=== PATIENT | female | born 2000 | race African-American/Black ===

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

== ENCOUNTER 2019-12-16 11:42 | Emergency (ER) | payer OTHER ==
[2019-12-16] MEDS ORDERED: ONDANSETRON 4 MG TAB.RAPDIS PO ONE (12:06)
--- NOTE | 2019-12-16 12:07 | ER Document Report ---
ED Medical Screen (RME) - General Chief Complaint: Abdominal Pain Stated Complaint: ABDOMINAL PAIN Time Seen by Provider: 12/16/19 12:00 TRAVEL OUTSIDE OF THE [place] IN LAST 30 DAYS: No - HPI Notes: 12/16/19 12:06 Patient is a 19-year-old female no significant past medical history presents complaining of lower pelvic pain that began last night. She did have one episode of nausea and vomiting. She is urinating normally and having normal bowel movements. No other vaginal bleeding, odor, or discharge. Patient states that she is a little bit late on her menstrual cycle and is not sure if she is or not. No fever. I have treated and performed a rapid initial assessment of this patient. A comprehensive ED assessment and evaluation of the patient, analysis of test results and completion of medical decision making process will be conducted by additional ED providers. PHYSICAL EXAMINATION: GENERAL: Well-appearing, well-nourished and in no acute distress. A&Ox4. Answers questions appropriately. Abdomen: Limited exam in triage, but there is noted tenderness to the lower pelvic area. - Related Data Allergies/Adverse Reactions: No Known Allergies Allergy (Verified 12/16/19 11:59) Past Medical History Renal/ Medical History: Denies: Hx Peritoneal Dialysis - Immunizations Immunizations up to date: Yes Hx Diphtheria, Pertussis, Tetanus Vaccination: Yes Physical Exam - Vital signs Vitals: Temp Pulse Resp BP Pulse Ox 98.4 F 82 20 136/58 H 97 12/16/19 11:48 12/16/19 11:48 12/16/19 11:48 12/16/19 11:48 12/16/19 11:48 Course - Vital Signs Vital signs: Temp Pulse Resp BP Pulse Ox 98.4 F 82 20 136/58 H 97 12/16/19 11:48 12/16/19 11:48 12/16/19 11:48 12/16/19 11:48 12/16/19 11:48
[2019-12-16 13:11] LABS: APPEARANCE,URINE CLEAR; BILIRUBIN,URINE NEGATIVE (NEGATIVE); COLOR,URINE YELLOW; GLUCOSE, URINE NEGATIVE (NEGATIVE); KETONES,URINE NEGATIVE (NEGATIVE); PROTEIN,URINE NEGATIVE (NEGATIVE); URINE SPECIFIC GRAVITY 1.018; UROBILINOGEN,URINE NEGATIVE mg/dL (<2.0)
[2019-12-16 13:18] LABS: ABSOLUTE EOSINOPHILS # (AUTO) 0.1 10^3/uL (0.0-0.6); ABSOLUTE LYMPHOCYTES (AUTO) 1.5 10^3/uL (0.5-4.7); ABSOLUTE MONOCYTES (AUTO) 0.5 10^3/uL (0.1-1.4); ABSOLUTE NEUT (AUTO) 5.6 10^3/uL (1.7-8.2); BASOPHILS % (AUTO) 0.4 % (0-2); EOSINOPHILS % (AUTO) 1.2 % (0-6); HEMATOCRIT 38.5 % (36.0-47.0); HEMOGLOBIN 12.5 g/dL (12.0-15.5); LYMPHOCYTES % (AUTO) 19.5 % (13-45); MEAN CORPUSCULAR HEMOGLOBIN 24.7 pg (27.0-33.4); MEAN CORPUSCULAR HGB CONC 32.6 g/dL (32.0-36.0); MEAN CORPUSCULAR VOLUME 76 fl (80-97); MONOCYTES % (AUTO) 6.2 % (3-13); PLATELET COUNT 247 10^3/uL (150-450); RED BLOOD COUNT 5.08 10^6/uL (3.72-5.28); RED CELL DISTRIBUTION WIDTH 16.3 % (11.5-14.0); SEGMENTED NEUTROPHILS % (AUTO) 72.7 % (42-78); TOTAL CELLS COUNTED % (AUTO) 100 %; WHITE BLOOD COUNT 7.6 10^3/uL (4.0-10.5)
[2019-12-16 13:28] LABS: ALBUMIN 4.2 g/dL (3.5-5.0); ALKALINE PHOSPHATASE 97 U/L (38-126); ANION GAP 6 (5-19); ASPARTATE AMINO TRANSFERASE 21 U/L (14-36); BILIRUBIN,TOTAL 0.4 mg/dL (0.2-1.3); BLOOD UREA NITROGEN 13 mg/dL (7-20); CALCIUM 9.2 mg/dL (8.4-10.2); CARBON DIOXIDE 28 mmol/L (22-30); CHLORIDE 105 mmol/L (98-107); GLUCOSE 90 mg/dL (75-110); POTASSIUM 4.3 mmol/L (3.6-5.0); TOTAL PROTEIN 7.4 g/dL (6.3-8.2)
--- NOTE | 2019-12-16 13:30 | RADIOLOGY REPORT (SQ) ---
EXAM DESCRIPTION: U/S NON OB PEL TV W/DOPPLER COMPLETED DATE/TIME: 12/16/2019 1:18 pm REASON FOR STUDY: pelv pain, perform regular tvus with neg preg test COMPARISON: None. TECHNIQUE: Dynamic and static grayscale images acquired of the pelvis via transvaginal approach and recorded on PACS. Additional selected color Doppler and spectral images recorded. LIMITATIONS: None. FINDINGS: UTERUS: Contour normal. No mass. ENDOMETRIAL STRIPE: No focal or generalized thickening. No masses. CERVIX: No nabothian cysts. RIGHT OVARY AND DOPPLER: Normal size. No worrisome masses. Normal arterial vascular flow without evid ence for torsion. LEFT OVARY AND DOPPLER: Normal size. No worrisome masses. Hypoechoic 3 cm lesion with lace-like inte rnal echoes, likely a hemorrhagic cyst. Normal arterial vascular flow without evidence for torsion. FREE FLUID: Mild free fluid is seen in the cul-de-sac and about the right adnexae. OTHER: No other significant finding. MEASUREMENTS: UTERUS: 7.0 x 5.5 x 3.2 cm ENDOMETRIAL STRIPE: 12 mm RIGHT OVARY: 4.7 x 3.1 x 2.0 cm LEFT OVARY: 5.5 x 4.1 x 3.0 cm IMPRESSION: 1. Suspect a hemorrhagic cyst in the left ovary. 2. Otherwise unremarkable pelvic ultrasound. Given the presence of pelvic pain, surveillance followup imaging may be warranted, particularly if pa in does not resolve as expected with a hemorrhagic cyst. This could include 6 -12 week ultrasound fo llow-up if warranted. TECHNICAL DOCUMENTATION: JOB ID: [id number] [employer] (formerly known [employer] All Rights Reserved Rev-03/19 Reading location - IP/workstation name: [email or web address]
--- NOTE | 2019-12-16 14:45 | ER Document Report ---
ED General - General Chief Complaint: Abdominal Pain Stated Complaint: ABDOMINAL PAIN Time Seen by Provider: 12/16/19 12:00 Notes: Patient is a 19-year-old -Citizen Of [place] female with no significant past medical history who presents to the emergency department today with a chief complaint of pelvic pain. Patient states that she has been trying to get recently and is unsure if she is having pain because she is . She denies any vaginal bleeding or vaginal discharge. Denies any urinary complaints. States the pain is vague and in the lower abdominal region diffusely. Denies any history of STD or any suspicious activities sexually. She is in a monogamous relationship and trying to get . She does admit to one episode of nausea and vomiting. Denies diarrhea or fever. No history of abdominal surgeries. She does not have an [facility] [employer]. TRAVEL OUTSIDE OF THE [place] IN LAST 30 DAYS: No - Related Data Allergies/Adverse Reactions: No Known Allergies Allergy (Verified 12/16/19 11:59) Past Medical History - Social History Smoking Status: Never Smoker Family History: Reviewed & Not Pertinent Patient has suicidal ideation: No Patient has homicidal ideation: No Renal/ Medical History: Denies: Hx Peritoneal Dialysis - Immunizations Immunizations up to date: Yes Hx Diphtheria, Pertussis, Tetanus Vaccination: Yes Review of Systems - Review of Systems Gastrointestinal: Abdominal pain, Nausea, Vomiting -: Yes All other systems reviewed and negative Physical Exam - Vital signs Vitals: Temp Pulse Resp BP Pulse Ox 98.4 F 82 20 136/58 H 97 12/16/19 11:48 12/16/19 11:48 12/16/19 11:48 12/16/19 11:48 12/16/19 11:48 - General General appearance: Appears well, Alert In distress: None Notes: Eating a pop tart and bag of chips in the room - Respiratory Respiratory status: No respiratory distress Chest status: Nontender Breath sounds: Normal Chest palpation: Normal - Cardiovascular Rhythm: Regular Heart sounds: Normal auscultation - Abdominal Inspection: Normal Distension: No distension Bowel sounds: Normal Tenderness: Tender - Mild tenderness to deep palpation diffuse lower abdomen Organomegaly: No organomegaly - Genitourinary Notes: Patient declined - Back Back: Normal, Nontender - Neurological Neuro grossly intact: Yes Cognition: Normal Orientation: AAOx4 Victorino Coma Scale Eye Opening: Spontaneous Victorino Coma Scale Verbal: Oriented Victorino Coma Scale Motor: Obeys Commands Victorino Coma Scale Total: 15 Speech: Normal - Psychological Associated symptoms: Normal affect, Normal mood - Skin Skin Temperature: Warm Skin Moisture: Dry Skin Color: Normal Course - Re-evaluation Re-evalutation: 12/16/19 14:43 Patient denies any suspicion for STD, declines pelvic examination at this time. Ultrasound showing a right ovarian hemorrhagic cyst. Start patient on naproxen and refer to [facility] [employer]. Counseled her regarding the importance of outpatient follow-up and advised that she return here or any ER immediately with any new, persistent or worsening symptoms. She verbalized understood and agreed. - Vital Signs Vital signs: Temp Pulse Resp BP Pulse Ox 98.4 F 82 20 136/58 H 97 12/16/19 11:48 12/16/19 11:48 12/16/19 11:48 12/16/19 11:48 12/16/19 11:48 - Laboratory Result Diagrams: 12/16/19 12:30 12/16/19 12:30 Laboratory results interpreted by me: 12/16/19 12/16/19 12:30 12:30 MCV 76 L MCH 24.7 L RDW 16.3 H Urine Ascorbic Acid 40 H Discharge - Discharge Clinical Impression: Hemorrhagic cyst Condition: Stable Disposition: HOME, SELF-CARE Instructions: Ovarian Cyst ([facility]) Additional Instructions: Follow-up with your regular doctor in 2 to 3 days for reevaluation. Return here or any ER immediately with any new, persistent or worsening symptoms. Prescriptions: Naproxen 500 mg PO BID PRN #20 tablet PRN Reason: Referrals: TYRON GIPSON MD [ACTIVE STAFF] - Follow up as needed
[2019-12-16 15:12] VITALS: BP 113/54
== END 2019-12-16 15:19 | disposition home or self-care (01) ==
LOC: ER 11:42
DX: N83.201 Unspecified ovarian cyst, right side (principal); R10.2 Pelvic and perineal pain; R11.2 Nausea with vomiting, unspecified; R10.30 Lower abdominal pain, unspecified
CPT/HCPCS: 36415; 76830; 80053; 81001; 84703; 85025; 93976; 99284; S0119